=== PATIENT | male | born 1940 | race Caucasian/White ===

== ENCOUNTER 2016-08-08 13:05 | Inpatient (IN) ==
--- NOTE | 2016-08-08 15:21 | Emergency Department Note ---
Arrival - Arrival Chief Complaint: Neuro Stated Complaint: left arm mobility ED Nursing Triage Note: Pt c/o left arm numbness/weakness since 0800 that has improved. Pt has been seen at [facility] this am and D/C home dx with TIA. 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 He had an episode of nausea and vomiting just prior to this and says his arm just went numb and totally flaccid. He was seen later at [facility]. Apparently the workup was negative, although we do not have those records at this point. He was diagnosed with TIA. Admission was recommended but ne refused. They did later contacted his cardiac/vascular sonographer Dr. Sr who recommended that he come here for admission. At this point he states that his arm feels back to normal except for some slight weakness. He denies any speech difficulty, facial drooping, confusion or any other weakness or numbness outside of his left arm. No chest pain or dyspnea. He does have a history of "mini strokes" in the past. He has also had some dizziness upon standing for the last [address] Mcdonald for this yesterday. His carvedilol was decreased, however, he has not filled the new prescription or changed his dose as of yet. Allergies/Adverse Reactions: Allergies Allergy/AdvReac Type Severity Reaction Status Date / Time No Known Allergies Allergy Verified 08/08/16 13:20 Home Medications: Home Medications Medication Instructions Recorded Confirmed Type ARIPiprazole [Aripiprazole] 5 mg PO QPM 08/08/16 08/08/16 History Aspirin [Ecotrin] 81 mg PO DAILY 08/08/16 08/08/16 History Atorvastatin [Lipitor] 40 mg PO BEDTIME 08/08/16 08/08/16 History Carvedilol [Coreg] 3.125 mg PO BID 08/08/16 08/08/16 History Citalopram [CeleXA] 20 mg PO DAILY 08/08/16 08/08/16 History Furosemide Tab [Lasix Tab] 40 mg PO DAILY 08/08/16 08/08/16 History Glimepiride 2 mg PO DAILY 08/08/16 08/08/16 History Valsartan 160 mg PO DAILY 08/08/16 08/08/16 History lamoTRIgine [Lamotrigine Tab] 100 mg PO DAILY 08/08/16 08/08/16 History metFORMIN [Glucophage] 1,000 mg PO BID 08/08/16 08/08/16 History Review of System - Review of System 12 point system: reviewed and no additional remarkable complaints except as stated - Review of System Constitutional: Absent: fever Eyes: Absent: vision change Head/Ears/Nose/Throat: Absent: nasal drainage Respiratory: Absent: cough Cardiovascular: Absent: chest pain, palpitations Gastrointestinal: Present: nausea, vomiting Musculoskeletal: Absent: arm pain Neurological: Present: weakness, numbness. Absent: headache, confusion, abnormal gait Medical,Surgical,& Family Hx - Medical History Cardio: History of: CAD, Hypertension Psychological: History of: Bipolar Disorder Neurology: History of: TIA Endocrine: History of: Diabetes Mellitus (NIDDM) - Surgical History Cardiac Surgeries: Sugical HX of: Cardiac Surgery (CABG) - Social History Smoking Status: Former smoker Exam Physical Examination: GENERAL: Alert. No acute distress. HEENT: Normocephalic and atraumatic. There is no temporal artery tenderness or pain on percussion of sinuses. No TMJ tenderness or click. PERRL, EOM intact, no angle closure, discs sharp bilaterally. There is no nasal discharge. No pharyngeal erythema or exudate. NECK: Normal inspection. Supple. No lymphadenopathy or meningismus. LUNGS: No respiratory distress. Clear to auscultation bilaterally, no wheezes, rales or rhonchi. HEART: Regular rate and rhythm. SKIN: Color normal. Warm and dry. EXTREMITIES: Nontender. Normal range of motion. NEUROLOGICAL/PSYCHIATRIC: Alert and oriented -4. Normal speech. Normal mood and affect. Cranial nerves II through X are intact. Sensory and motor exams are normal. Reflexes are normal. There is no pronator drift. Finger to nose is normal bilaterally. Vital Signs: Vital Signs Temperature 97.8 F 08/08/16 13:19 Pulse Rate 61 08/08/16 15:47 Respiratory Rate 18 08/08/16 15:47 Blood Pressure 139/71 08/08/16 15:47 O2 Sat by Pulse Oximetry 95 08/08/16 15:47 Course - Reevaluation(s) Reevaluation #1: It sounds likely that the patient has had a CVA versus TIA, however, we have no records from his visit to [place]. We are sending for those records at this point. Time: 15:21 Reevaluation #2: Records received from [place]. I do not have the actual CT scan but the report reads normal senescent brain. The rest of his workup shows no significant abnormality. I suspect he has had a TIA versus CVA. He states that he still feels slightly weak in the left upper extremity, however, I can detect no weakness on physical exam. I have discussed the patient with the hospitalist service who will see him and admit. Time: 16:20 Results - Labs Lab Results: I have reviewed the patients labs Labs: See lab work done at [place]. Significant findings as follows: Glucose 174 BUN 31 Creatinine 1.6 Troponin less than 0.017 Hemoglobin 14.4 Hematocrit 43.6 White blood cell count 8.4 Platelets 245 BNP 187 INR 0.93 - Impressions EKG done at [place] shows a normal sinus rhythm at 65 with a first-degree AV block and left anterior fascicular block. Chest x-ray report from [place] reads no acute heart or lung disease. Previous trans-sternal surgery. Brain CT report from [place] reads normal senescent brain Disposition Clinical Impression: Transient cerebral ischemia Case discussed with: patient, patient's family Disposition: Still a Patient Condition: Stable Time of Disposition: 16:32
--- NOTE | 2016-08-08 16:58 | CT Report ---
Referring physician: Cristian Marroquin Exam: CT brain without contrast Date: 08/08/2016 Comparison: None Reason: TIA Technique: Axial images of the head were obtained without the use of contrast. Total DLP was 1164.60 mGy*cm. Findings: No hydrocephalus or midline shift is present. There is no evidence of recent intracranial hemorrhage, extracerebral collection, or abnormal mass effect. Diffuse atrophy with cerebral hypodensities. This includes an ill-defined hypodensity in the left rashad. The osseous structures appear intact. The mastoid air cells are clear. Minimal mucosal thickening/fluid in the paranasal sinuses. Impression: Cerebral atrophy and microvascular disease. Possible acute ischemic infarction the left rashad. MRI may be helpful for further evaluation. Minimal sinusitis. The CT exam was performed using one or more of the following dose reduction techniques: Automated exposure control and adjustment of the mA and/or kV according to patient size. PROCEDURE INTERPRETED AT [facility] DEPARTMENT OF RADIOLOGY Final Report Signed by: Dr. Columba Alfonso
--- NOTE | 2016-08-08 17:55 | Hospitalist History & Physical ---
<Ana Harden - Last Filed: 08/08/16 17:48> Assessment and Plan - Time spent with patient Time spent with patient: Greater than 30 minutes (1) Transient cerebral ischemia Status: Acute Assessment and plan: at [address] patient presented to [facility] and after evaluation; was informed that he had an TIA and would need to be admitted for further evaulation. Patient refused and contacted Dr Sr at which time was told to go to the ER for further evaluation. Patient was seen in non-urgent in no acute distress. He states his weakness in his left arm has resolved and the feeling has returned to normal. Normal speech and answers questions appropriately with very little input form his in the room. We do not have any records at this time from [facility] however, CT done upon evaluation shows: Cerebral atrophy and microvascular disease. Possible acute ischemic infarction in left rashad. Plan is to admit, labs, bilateral carotid dopplers, Echo, and MRi. Current Visit: Yes History of Present Illness Chief complaint: left arm weakness, nausea and vomiting History of present illness: Mr. Donis is a well nourished 76 year old white male very pleasant and compliant. Presented to the non-urgent with left sided weakness and nausea and vomiting that started this a.m around 8 when he was going fishing but got down the road a litlle bit started feeling nauseated and vomiting 2 or 3 times, at that time his left arm went completely numb and was unable to lift it. He went to [facility] and was evaluated. He was diagnosed with TIA and patient refused admission for further evaluation; jesusnet wanted to discuss with Dr Sr before agreeing to be admitted. He later called Dr Sr and was then instructed to go to the ER for further evaluation. He denies any facial drooping, any other numbness beside the left arm or speech abnomalities during the event. Denies chest pain, SOB or vision changes. Patient does have a history of "mini strokes" in the past with the last one occurring over 14 years ago, as well as hypertension sleep apnea (uses CPAP), Diabetes, and bipolar disorder. He quit smoking 14 years ago; does not drink alcohol. Family history Mom: CA and HTN Dad: Diabetes Home Medications Medication Instructions Recorded Confirmed Type ARIPiprazole [Aripiprazole] 5 mg PO QPM 08/08/16 08/08/16 History Aspirin [Ecotrin] 81 mg PO DAILY 08/08/16 08/08/16 History Atorvastatin [Lipitor] 40 mg PO BEDTIME 08/08/16 08/08/16 History Carvedilol [Coreg] 3.125 mg PO BID 08/08/16 08/08/16 History Citalopram [CeleXA] 20 mg PO DAILY 08/08/16 08/08/16 History Furosemide Tab [Lasix Tab] 40 mg PO DAILY 08/08/16 08/08/16 History Glimepiride 2 mg PO DAILY 08/08/16 08/08/16 History Valsartan 160 mg PO DAILY 08/08/16 08/08/16 History lamoTRIgine [Lamotrigine Tab] 100 mg PO DAILY 08/08/16 08/08/16 History metFORMIN [Glucophage] 1,000 mg PO BID 08/08/16 08/08/16 History Allergies Allergy/AdvReac Type Severity Reaction Status Date / Time No Known Allergies Allergy Verified 08/08/16 13:20 Medical,Surgical,& Family Hx - Medical History Cardio: History of: CAD (CaBG 14 years ago), Hypertension Psychological: History of: Bipolar Disorder Neurology: History of: TIA Endocrine: History of: Diabetes Mellitus (NIDDM) Respiratory: History of: Obstructive Sleep Apnea (uses his CPAP as ordered) Renal: No history of: Renal Problems - Surgical History Cardiac Surgeries: Sugical HX of: Cardiac Surgery (CABG) - Social History Smoking Status: Former smoker Review of systems: ROS systems competed and pertinent positives and negatives are presented in the HPI. Exam - Constitutional Vitals: Period Temp Pulse Resp BP Sys/Gonzalez Pulse Ox Last 24 Hr 97.8 F 61-67 16-18 130-139/71-79 95-95 General appearance: no acute distress, over weight Exam: Alert and no acute distress. - Head Head exam: Present: normal inspection - Eye Eye exam: Present: EOMI Pupils: Present: TYLER - Neck Neck exam: Present: normal inspection - Respiratory Respiratory exam: Present: clear to auscultation bilaterally - Cardiovascular Cardiovascular exam: Present: regular rate and rhythm, other (Family history: Mom HtN and CA; Diad Diabetes) - GI/Abdominal GI/Abdominal exam: Present: normal bowel sounds. Absent: guarding, tenderness, rebound - Extremities Exam Extremities exam: Present: normal inspection. Absent: edema - Neurological Exam Neurological exam: Present: alert, oriented X3 - Psychiatric Psychiatric exam: Present: normal affect - Skin Skin exam: Present: normal color, warm, dry. Absent: rash Quality Measures - Stroke Onset of Symptoms Date: 08/08/16 Onset of Symptoms Time: 08:00 Symptom Onset Unknown: No <Cristian Kay - Last Filed: 08/08/16 18:56> History of Present Illness History of present illness: Patient was seen and examined by me personally. Documentation by Ana Harden NP has been reviewed. Mr. Donis is a 76 year old white male states that while fishing approximately 8 AM he noted some nausea and vomiting as well as complete loss of the of his left upper extremity. He was seen at [facility] where he was evaluated and diagnosed with a TIA. He refused admission and call Dr. Sr's office and was referred to the ER here. He states during the day that his left upper extremity strength has essentially returned to normal and he denies any paresthesias. He denies any current chest pain, shortness breath, palpitations, abdominal pain, melena, hematochezia, hematemesis, dysuria, hematuria, seizure, syncope. Past medical history is significant for TIAs, hypertension, sleep apnea, diabetes mellitus, bipolar disorder. He is a reformed tobacco abuser. Family history is significant for cancer, hypertension, diabetes mellitus. On physical exam is currently afebrile vital signs are stable in general pleasant male no acute distress she is awake alert oriented HEENT normocephalic atraumatic pupils equal round reactive oropharynx is clear. neck supple without adenopathy no JVD or thyromegaly no bruits. cardiovascular regular rate and rhythm no murmur. lungs clear without rales or wheeze. abdomen soft nontender extremities or clubbing cyanosis or edema pulses are intact. Neurologic exam he is awake alert and oriented, cranial nerves II through XII grossly intact, gag reflex intact, no focal motor or sensory deficits, strength 5/5 in all major muscle groups. Lab and radiologic data been reviewed Impression: 1. Acute ischemic CVA 2. Chronic essential hypertension 3. Diabetes mellitus type 2 4. Hyperlipidemia 5. Obstructive sleep apnea Plan: Patient will be admitted to a cardiac monitored bed. Will place on full dose aspirin. Neuro checks every 4. Will obtain MRI of the brain, carotid Dopplers, echocardiogram in the a.m. Neurology will be consulted. Place on Accu-Cheks with sliding scale and continue moderate blood pressure control as well as his statin therapy. He will receive Lovenox subcu for DVT prophylaxis. Further workup performed based on patient, response results pending database. Exam - Constitutional Vitals: Period Temp Pulse Resp BP Sys/Gonzalez Pulse Ox Last 24 Hr 97.8 F 61-67 16-18 130-139/71-79 95-95
[2016-08-08] MEDS ORDERED: diphenhydrAMINE CAP 25 MG CAPSULE PO PRN (18:10)
[2016-08-08] MEDS ORDERED: ACETAMINOPHEN 325 MG TABLET PO PRN (18:10)
[2016-08-08] MEDS ORDERED: ONDANSETRON 4 MG/2 ML VIAL IV PRN (18:10)
[2016-08-08] MEDS ORDERED: PROMETHAZINE 25 MG/1 ML VIAL IM PRN (18:10)
[2016-08-08] MEDS ORDERED: DOCUSATE SODIUM 100 MG CAPSULE PO PRN (18:10)
[2016-08-08] MEDS ORDERED: guaiFENesin/DM ER 600-30 MG TABLET PO PRN (18:10)
[2016-08-08] MEDS ORDERED: DEXTROSE 50% 25 GM/50 ML VIAL IV PRN (18:39)
[2016-08-08] MEDS ORDERED: GLUCAGON 1 MG VIAL IM PRN (18:39)
--- NOTE | 2016-08-08 18:40 | XRay Report ---
Portable chest Date: 08/08/2016 Clinical history: Shortness of breath Comparison: 09/17/2012 Technique: Portable AP sitting chest Findings: The heart is smaller in size with prior median sternotomy. Chronic scarring. Unremarkable mediastinum with degenerative changes. Impression: Status post median sternotomy with chronic scarring. No acute cardiopulmonary pathology identified. PROCEDURE INTERPRETED AT [facility] DEPARTMENT OF RADIOLOGY Final Report Signed by: Dr. Columba Alfonso
--- NOTE | 2016-08-08 20:36 | Ultrasound Report ---
Exam: Carotid ultrasound Date: 08/08/2016 Comparison: 12/07/2006 Technique: Duplex scans of the carotid and vertebral arteries using B-mode/Gavin scale imaging and Doppler spectral analysis and color flow. Reason: TIA, left arm paralysis Findings: The right ICA measures 5.7 mm in diameter and the left ICA measures 4.4 mm in diameter. Color-flow documented in the visualized arteries. The peak systolic velocities are as follows: Right CCA: 54.5 cm/s Right ICA: 102.6 cm/s Right ECA: 455.4 cm/s Left CCA: 81.9 cm/s Left ICA: 105.2 cm/s Left ECA: 73.0 cm/s The peak systolic ICA/CCA velocity ratios are as follows: 1.9 on the right and 1.3 on the left. Antegrade flow is present in both vertebral arteries. Impression:[Less than 50% stenosis in both internal carotid arteries with heterogeneous plaque formation. Antegrade flow in both vertebral arteries.] The Society of Radiologists in Ultrasound consensus conference criteria was used. The Ultrasound images were captured and stored. PROCEDURE INTERPRETED AT [facility] DEPARTMENT OF RADIOLOGY Final Report Signed by: Dr. Columba Alfonso
[2016-08-08] MEDS ORDERED: ARIPiprazole 5 MG TABLET PO SCH (21:00)
[2016-08-08] MEDS ORDERED: ATORVASTATIN 40 MG TABLET PO SCH (21:00)
[2016-08-08] MEDS: CARVEDILOL 3.125 MG TABLET PO SCH (21:50)
[2016-08-08] MEDS: SODIUM CHLORIDE 0.9% 1,000 ML IV SCH (21:51)
[2016-08-08] MEDS: metFORMIN 500 MG TABLET PO SCH (21:51)
[2016-08-08] MEDS: INSULIN LISPRO 100 UNIT/ML SUBCUT SCH (22:23)
[2016-08-09 05:49] LABS: Basophils % 0.6 % (0.0-0.8); Eosinophils # 0.2 10*3/uL (0.0-0.87); Eosinophils % 3.5 % (0.00-10.9); Hematocrit 38.3 VOL% (42.0-52.0); Immature Granulocytes % 0.3 %; Immature Granulocytes Absolute 0.02 #; Lymphocytes # 2.3 10*3/uL (1.4-4.0); Lymphocytes % 37.1 % (21.2-54.2); Mean Corpuscular HGB Conc 33.9 GM/DL (32-36); Mean Corpuscular Hemoglobin 31 PG (27-34); Mean Corpuscular Volume 92.5 FL (87-102); Mean Platelet Volume 10.7 FL (9.6-12.0); Monocytes # 0.7 10*3/uL (0.11-0.8); Monocytes % 10.6 % (1.7-12.7); Neutrophils % 47.9 % (38.7-73.9); Platelet Count 180 T/CUMM (130-400); Red Blood Count 4.14 MC/CUMM (3.8-5.5); Red Cell Distribution Width 12.9 % (9.3-17.3); White Blood Count 6.3 T/CUMM (4-12)
[2016-08-09] MEDS: SODIUM CHLORIDE 0.9% 1,000 ML IV SCH (05:59)
[2016-08-09 06:31] LABS: Albumin 3.1 G/DL (3.4-5.0); Bilirubin,Total 0.4 MG/DL (0.2-1.0); Calcium 8.8 MG/DL (8.5-10.1); Magnesium 2.3 MG/DL (1.8-2.4); Potassium 4.1 MMOL/L (3.5-5.1); Total Protein 6.5 G/DL (6.4-8.3)
[2016-08-09 06:37] LABS: Risk Ratio 3.16; VLDL CHOLESTEROL 28.6 MG/DL
[2016-08-09] MEDS ORDERED: VALSARTAN 160 MG TABLET PO SCH (09:00)
[2016-08-09] MEDS ORDERED: FUROSEMIDE 40 MG TABLET PO SCH (09:00)
[2016-08-09] MEDS ORDERED: GLIMEPIRIDE 2 MG TABLET PO SCH (09:00)
[2016-08-09] MEDS ORDERED: ASPIRIN 325 MG TABLET PO SCH (09:00)
[2016-08-09] MEDS ORDERED: PANTOPRAZOLE 40 MG TABLET PO SCH (09:00)
[2016-08-09] MEDS ORDERED: CITALOPRAM 20 MG TABLET PO SCH (09:00)
[2016-08-09] MEDS ORDERED: lamoTRIgine 100 MG TABLET PO SCH (09:00)
[2016-08-09] MEDS: INSULIN LISPRO 100 UNIT/ML SUBCUT SCH ×2 (09:32→12:32)
[2016-08-09] MEDS: CARVEDILOL 3.125 MG TABLET PO SCH (09:39)
[2016-08-09] MEDS: metFORMIN 500 MG TABLET PO SCH (09:39)
--- NOTE | 2016-08-09 10:34 | Magnetic Resonance Report ---
MR head/brain wo con Indication: TIA Comparison: CT brain dated August 08, 2016 Technique: Multiplanar magnetic resonance imaging was performed of the brain without the use of intravenous contrast. Findings: Mild mucosal thickening of the paranasal sinuses. Moderate periventricular and subcortical T2 hyperintensity noted which is nonspecific but consistent with chronic microvascular ischemic change. Moderate global volume loss present. The midline structures are nondisplaced. There is no evidence of hydrocephalus. The gibson-white matter differentiation is maintained. There is no evidence of acute intracranial hemorrhage or ischemia. The included orbits and their contents appear within normal limits. T2 major vascular flow voids are maintained. IMPRESSION: No acute intracranial abnormal demonstrated. Probable chronic microvascular ischemic change and volume loss. PROCEDURE INTERPRETED AT [facility] DEPARTMENT OF RADIOLOGY Final Report Signed by: Dr Esau Fall
[2016-08-09 12:45] VITALS: BP 148/75
--- NOTE | 2016-08-09 14:11 | Discharge Summary ---
Hospital Course - Hospital Course Hospital Course: Discharge diagnosis: 1. Possible transient ischemic attack 2. Type II DM 3. Hypertension The patient was referred from an outside hospital for evaluation of TIA symptoms. Initial head CT showed a possible left pontine lesion. Carotid ultrasound did not reveal any hemodynamically significant stenosis. An MRI of the brain did not show any acute infarction. The patient's symptoms all resolved. He is now being discharged home. Medication reconciliation has been performed. ADA diet. Activity as tolerated. This note was completed using [employer] voice recognition software. There may be gas station clerk errors as a result. Discharge Plan - Discharge Data Disposition: Disch To Home/Self Care Discharge Diet: advance to your usual diet Activity: resume usual activities as tolerated Hygiene: no restrictions Weight Bearing at Discharge: full weight bearing Driving: no restrictions - Discharge Medications Continue metFORMIN [Glucophage] 1,000 mg PO BID Glimepiride 2 mg PO DAILY Furosemide Tab [Lasix Tab] 40 mg PO DAILY Atorvastatin [Lipitor] 40 mg PO BEDTIME Citalopram [CeleXA] 20 mg PO DAILY Aspirin [Ecotrin] 81 mg PO DAILY Valsartan 160 mg PO DAILY lamoTRIgine [Lamotrigine Tab] 100 mg PO DAILY Carvedilol [Coreg] 3.125 mg PO BID ARIPiprazole [Aripiprazole] 5 mg PO BEDTIME - Follow Up or Referral - Forms/Instructions Exam - Constitutional Vitals: Period Temp Pulse Resp BP Sys/Gonzalez Pulse Ox Last 24 Hr 96.3 F-97.6 F 53-61 18-20 118-148/69-84 93-95 Vital signs are noted above. He is up and about in the room, and has no neurologic deficits. Discharge Results Labs on day of discharge: Labs from last 24 hours 08/09/16 08/09/16 08/09/16 07:15 05:24 05:24 WBC RBC Hgb Hct MCV MCH MCHC RDW Plt Count MPV Neut % (Auto) Lymph % (Auto) [place] % (Auto) Eos % (Auto) Baso % (Auto) Neut # (Auto) Lymph # (Auto) [place] # (Auto) Eos # (Auto) Baso # (Auto) Immature Gran % Nucleated RBC % Immature Gran # Nucleated RBCs # Sodium Potassium Chloride Carbon Dioxide Anion Gap BUN Creatinine GFR Calculation BUN/Creatinine Ratio Glucose POC Glucose 130 H Hemoglobin A1c 7.0 H Calculated Osmolality Calcium Magnesium Total Bilirubin AST ALT Alkaline Phosphatase Total Protein Albumin Globulin Albumin/Globulin Ratio Triglycerides 143 Cholesterol 101 LDL Cholesterol 57.0 VLDL Cholesterol 28.6 HDL Cholesterol 32 L Heart Disease Risk Ratio 3.16 08/09/16 08/09/16 08/08/16 05:24 05:24 21:49 WBC 6.3 RBC 4.14 Hgb 13.0 L Hct 38.3 L MCV 92.5 MCH 31 MCHC 33.9 RDW 12.9 Plt Count 180 MPV 10.7 Neut % (Auto) 47.9 Lymph % (Auto) 37.1 [place] % (Auto) 10.6 Eos % (Auto) 3.5 Baso % (Auto) 0.6 Neut # (Auto) 3.0 Lymph # (Auto) 2.3 [place] # (Auto) 0.7 Eos # (Auto) 0.2 Baso # (Auto) 0.0 Immature Gran % 0.3 Nucleated RBC % 0.0 Immature Gran # 0.02 Nucleated RBCs # 0.00 Sodium 143 Potassium 4.1 Chloride 107 Carbon Dioxide 27 Anion Gap 13.1 BUN 25 H Creatinine 1.20 GFR Calculation 76 BUN/Creatinine Ratio 20.00 Glucose 133 H POC Glucose 200 H Hemoglobin A1c Calculated Osmolality 290.0 Calcium 8.8 Magnesium 2.3 Total Bilirubin 0.40 AST 50 H ALT 98 H Alkaline Phosphatase 98 Total Protein 6.5 Albumin 3.1 L Globulin 3.4 Albumin/Globulin Ratio 0.9 L Triglycerides Cholesterol LDL Cholesterol VLDL Cholesterol HDL Cholesterol Heart Disease Risk Ratio DS: Provider Date of admission: 08/08/16 17:42 Primary care physician: . No PCP Attending physician on admission: Gera Cason MD Consults: 08/08/16 19:07 Consult to Physician [CONS] Routine Comment: Consulting Provider: Golden Romano Person Notified: herrera Date Notified: 08/09/16 Time Notified: 08:48 Discharging clinician: Dillon Lucas MD Expected date of discharge: 08/09/16
--- NOTE | 2016-08-09 15:49 | ECHO Report ---
John Donis Exam Date: 08/09/2016 12:07 Referring Physician: Technologist: Jordana Goodrich RDCS Age: 76 Ht (in): 72 Wt (lb): 226 Gender: M Exam Location: [facility] Echo Indications: Essential (primary) hypertension, Diabetes, CAD, TIA, Nausea and vomiting BP: 129 / 80 HR: 55 Rhythm: Sinus Technical Quality: Good IMPRESSIONS Distal anteroapical hypokinesis. EF 45 %. Grade I/IV diastolic dysfunction (abnormal relaxation filling pattern), normal to mildly elevated filling pressures. Mildly increased right ventricular size. The right atrium is mildly enlarged. Moderately increased left atrial size. Morphologically normal mitral valve. Mild mitral valve regurgitation. Aortic valve sclerosis. No aortic valve regurgitation. [id number] tricuspid valve regurgitation. PAP 55-60 mmHG. Trace to mild pulmonary valve regurgitation. Normal pericardium without effusion. Normal ascending aorta dimension. MEASUREMENTS (Male / Female) Normal Values 2D ECHO LV Diastolic Diameter PLAX 5.0 cm 4.2 - 5.9 / 3.9 - 5.3 cm LV Systolic Diameter PLAX 3.5 cm LV Fractional Shortening PLAX 28.6 % IVS Diastolic Thickness 1.3 cm 0.6 - 1.0 / 0.6 - 0.9 cm LVPW Diastolic Thickness 1.3 cm 0.6 - 1.0 / 0.6 - 0.9 cm RV Internal Dim ED PLAX 2.7 cm Aortic Root Diameter 3.1 cm LA Systolic Diameter LX 5.0 cm 3.0 - 4.0 / 2.7 - 3.8 cm DOPPLER TR Peak Velocity 341.0 cm/s TR Peak Gradient 46.5 mmHg FINDINGS Left Ventricle Distal anteroapical hypokinesis.EF 45 %. Grade I/IV diastolic dysfunction (abnormal relaxation filling pattern), normal to mildly elevated filling pressures. Right Ventricle Mildly increased right ventricular size. Right Atrium The right atrium is mildly enlarged. Left Atrium Moderately increased left atrial size. Mitral Valve Morphologically normal mitral valve. Mild mitral valve regurgitation. Aortic Valve Aortic valve sclerosis. No aortic valve regurgitation. Tricuspid Valve Morphologically normal tricuspid valve. Feeeombq-hj-aclbct tricuspid valve regurgitation. PAP 55-60 mmHG. Pulmonic Valve Morphologically normal pulmonic valve. Trace to mild pulmonary valve regurgitation. Pericardium Normal pericardium without effusion. Aorta Normal ascending aorta dimension. Damien Plavac (Electronically Signed) Final Date: 09 August 2016 15:48
== END 2016-08-09 15:00 | disposition home or self-care (01) | DRG 69 ==
LOC: N.ED 13:05 → SUATTDRO 17:42 → N.EDINP 17:42 → N.2E 18:42
PROVIDERS: ADMIT Family Medicine; ATTEND Internal Medicine Geriatric Medicine

== ENCOUNTER 2019-09-12 20:05 | Observation (INO) ==
[2019-09-12] MEDS ORDERED: SODIUM CHLORIDE 0.9% 500 ML IV STA (20:48)
[2019-09-12 20:52] LABS: Basophils # 0.1 10*3/uL (0.0-0.2); Basophils % 0.6 % (0.0-0.8); Eosinophils # 0.2 10*3/uL (0.0-0.87); Eosinophils % 1.7 % (0.00-10.9); Hematocrit 40.3 VOL% (42.0-52.0); Hemoglobin 13.5 GM/DL (14.0-18.0); Immature Granulocytes % 0.6 %; Immature Granulocytes Absolute 0.06 #; Lymphocytes # 3.2 10*3/uL (1.4-4.0); Lymphocytes % 32.4 % (21.2-54.2); Mean Corpuscular HGB Conc 33.5 GM/DL (32-36); Mean Corpuscular Volume 94.4 FL (87-102); Monocytes % 6.9 % (1.7-12.7); Neutrophils % 57.8 % (38.7-73.9); Platelet Count 238 T/CUMM (130-400); Red Blood Count 4.27 MC/CUMM (3.8-5.5); White Blood Count 9.9 T/CUMM (4-12)
[2019-09-12 21:08] LABS: Albumin 3.4 G/DL (3.4-5.0); Bilirubin,Total 0.5 MG/DL (0.2-1.0); Calcium 9.1 MG/DL (8.5-10.1); Osmolality,Calculated 280.7 MOS/KG (273-304); Total Protein 7.5 G/DL (6.4-8.3)
[2019-09-12 22:12] LABS: Apearance,Urine CLEAR (Clear); Bacteria,Urine Occasional /HPF (Few); Bilirubin,Urine Negative (Negative); Blood, Urine Negative (Negative); Calcium Oxalate Crystals,Urine Occasional /HPF (Few); Glucose,Urine (UA) Negative (Negative); Hyaline Casts,Urine 19 /LPF (0-3); Ketones,Urine Negative (Negative); Mucus,Urine Occasional /LPF (Occasional); Nitrite,Urine Negative (Negative); Protein,Urine Negative; RBC,Urine 1 /HPF (0-4); Squamous Epithelial Cell,Urine Occasional /HPF (0-10); Urine Color Yellow (Yellow); Urine Specific Gravity 1.012 (1.001-1.035); Urine Urobilinogen < 2.0 EU/DL (0.2-1.0); WBC,Urine 5 /HPF (0-6)
[2019-09-12] MEDS ORDERED: ACETAMINOPHEN 325 MG TABLET PO PRN (23:12)
[2019-09-12] MEDS ORDERED: GLUCAGON 1 MG VIAL IM PRN (23:12)
[2019-09-12] MEDS ORDERED: ONDANSETRON 4 MG/2 ML VIAL IV PRN (23:12)
[2019-09-12] MEDS ORDERED: DEXTROSE 50% 25 GM/50 ML VIAL IV PRN (23:12)
[2019-09-13] MEDS: ENOXAPARIN 30 MG/0.3 ML SYRINGE SUBCUT SCH ×2 (02:15→22:35)
[2019-09-13] MEDS: INSULIN REGULAR 100 UNIT/ML SUBCUT SCH ×4 (07:35→21:44)
[2019-09-13 08:26] LABS: Basophils # 0.1 10*3/uL (0.0-0.2); Basophils % 0.8 % (0.0-0.8); Eosinophils # 0.2 10*3/uL (0.0-0.87); Eosinophils % 2.3 % (0.00-10.9); Hematocrit 41.2 VOL% (42.0-52.0); Hemoglobin 13.8 GM/DL (14.0-18.0); Immature Granulocytes % 0.6 %; Immature Granulocytes Absolute 0.04 #; Lymphocytes % 46.1 % (21.2-54.2); Mean Corpuscular HGB Conc 33.5 GM/DL (32-36); Mean Corpuscular Volume 94.5 FL (87-102); Mean Platelet Volume 10.7 FL (9.6-12.0); Monocytes % 6.9 % (1.7-12.7); Neutrophils % 43.3 % (38.7-73.9); Platelet Count 192 T/CUMM (130-400); Red Blood Count 4.36 MC/CUMM (3.8-5.5); Red Cell Distribution Width 12.9 % (9.3-17.3); White Blood Count 6.5 T/CUMM (4-12)
[2019-09-13 08:43] LABS: Albumin 3.2 G/DL (3.4-5.0); Bilirubin,Total 0.5 MG/DL (0.2-1.0); Calcium 8.9 MG/DL (8.5-10.1); Osmolality,Calculated 286.2 MOS/KG (273-304); Total Protein 6.9 G/DL (6.4-8.3)
[2019-09-13] MEDS ORDERED: NITROGLYCERIN SL 0.4 MG TABLET SL PRN (09:50)
[2019-09-13] MEDS: PANTOPRAZOLE 40 MG TABLET PO SCH (10:00)
[2019-09-13] MEDS ORDERED: CITALOPRAM 20 MG TABLET PO SCH (21:00)
[2019-09-13] MEDS: RANOLAZINE 500 MG TABLET PO SCH (21:42)
[2019-09-14] MEDS ORDERED: NEBIVOLOL 5 MG TABLET PO SCH (09:00)
[2019-09-14] MEDS ORDERED: ASPIRIN EC 81 MG TABLET PO SCH (09:00)
[2019-09-14] MEDS ORDERED: CLOPIDOGREL 75 MG TABLET PO SCH (09:00)
[2019-09-14] MEDS: PANTOPRAZOLE 40 MG TABLET PO SCH (09:33)
[2019-09-14] MEDS: RANOLAZINE 500 MG TABLET PO SCH (09:34)
[2019-09-14] MEDS: INSULIN REGULAR 100 UNIT/ML SUBCUT SCH (09:34)
[2019-09-14 11:33] VITALS: BP 152/74
== END 2019-09-14 12:07 | disposition home or self-care (01) ==
LOC: EDBD → EDUNIT# → N.ED 20:05 → N.EDINP 20:05 → SUATTDRO 23:12 → N.EDINP 09-13 12:39 → N.TELEN 09-13 14:22
PROVIDERS: ADMIT Family Medicine; ATTEND Internal Medicine

== ENCOUNTER 2020-07-20 14:09 | Observation (INO) ==
[2020-07-20] MEDS ORDERED: SODIUM CHLORIDE 0.9% 1,000 ML IV STA (14:42)
[2020-07-20 14:49] LABS: Basophils # 0.1 10*3/uL (0.0-0.2); Basophils % 0.6 % (0.0-0.8); Eosinophils # 0.1 10*3/uL (0.0-0.87); Eosinophils % 1.6 % (0.00-10.9); Hematocrit 38.4 VOL% (42.0-52.0); Hemoglobin 12.6 GM/DL (14.0-18.0); Immature Granulocytes % 0.5 %; Immature Granulocytes Absolute 0.04 #; Lymphocytes # 1.6 10*3/uL (1.4-4.0); Lymphocytes % 20.1 % (21.2-54.2); Mean Corpuscular HGB Conc 32.8 GM/DL (32-36); Mean Corpuscular Volume 99.2 FL (87-102); Mean Platelet Volume 10.6 FL (9.6-12.0); Monocytes % 6.2 % (1.7-12.7); Platelet Count 203 T/CUMM (130-400); Red Blood Count 3.87 MC/CUMM (3.8-5.5); Red Cell Distribution Width 12.7 % (9.3-17.3); White Blood Count 7.7 T/CUMM (4-12)
[2020-07-20 14:55] LABS: INR 1.3; PT Patient Result 13.9 SECS (10.5-12.0)
[2020-07-20 15:06] LABS: Albumin 3.2 G/DL (3.4-5.0); Bilirubin,Total 0.5 MG/DL (0.2-1.0); Calcium 8.2 MG/DL (8.5-10.1); Osmolality,Calculated 294.4 MOS/KG (273-304); Potassium 4.4 MMOL/L (3.5-5.1); Total Protein 6.7 G/DL (6.4-8.2)
[2020-07-20] MEDS ORDERED: ONDANSETRON 4 MG/2 ML VIAL IV PRN (15:33)
[2020-07-20] MEDS ORDERED: GLUCAGON 1 MG VIAL IM PRN (15:33)
[2020-07-20] MEDS ORDERED: DEXTROSE 50% 25 GM/50 ML VIAL IV PRN (15:33)
[2020-07-20] MEDS ORDERED: NITROGLYCERIN SL 0.4 MG TABLET SL PRN (16:27)
[2020-07-20] MEDS: INSULIN REGULAR 100 UNIT/ML SUBCUT SCH (18:32)
[2020-07-20] MEDS: ROSUVASTATIN 10 MG TABLET PO SCH (22:06)
[2020-07-20] MEDS: CITALOPRAM 20 MG TABLET PO SCH (22:06)
[2020-07-20] MEDS: ENOXAPARIN 30 MG/0.3 ML SYRINGE SUBCUT SCH (22:06)
[2020-07-21 05:02] LABS: Basophils % 0.7 % (0.0-0.8); Eosinophils # 0.2 10*3/uL (0.0-0.87); Eosinophils % 2.9 % (0.00-10.9); Hematocrit 38.1 VOL% (42.0-52.0); Hemoglobin 12.4 GM/DL (14.0-18.0); Immature Granulocytes % 0.5 %; Immature Granulocytes Absolute 0.03 #; Lymphocytes # 2.1 10*3/uL (1.4-4.0); Lymphocytes % 36.3 % (21.2-54.2); Mean Corpuscular HGB Conc 32.5 GM/DL (32-36); Mean Corpuscular Volume 99.5 FL (87-102); Mean Platelet Volume 10.4 FL (9.6-12.0); Monocytes % 8.9 % (1.7-12.7); Neutrophils % 50.7 % (38.7-73.9); Platelet Count 169 T/CUMM (130-400); Red Blood Count 3.83 MC/CUMM (3.8-5.5); Red Cell Distribution Width 12.7 % (9.3-17.3); White Blood Count 5.9 T/CUMM (4-12)
[2020-07-21 05:24] LABS: Calcium 8.5 MG/DL (8.5-10.1); Osmolality,Calculated 285.5 MOS/KG (273-304); Potassium 3.8 MMOL/L (3.5-5.1)
[2020-07-21 05:34] LABS: Risk Ratio 2.91; Thyroid Stimulating Hormone 2.12 uIU/ml (0.358-3.74); VLDL CHOLESTEROL 45.2 MG/DL
[2020-07-21] MEDS: CLOPIDOGREL 75 MG TABLET PO SCH (09:15)
[2020-07-21] MEDS: ASPIRIN EC 81 MG TABLET PO SCH (09:15)
[2020-07-21] MEDS: INSULIN REGULAR 100 UNIT/ML SUBCUT SCH ×2 (09:15→17:01)
[2020-07-21] MEDS: METOPROLOL SUCCINATE XL 50 MG TABLET PO SCH ×2 (12:35→21:00)
[2020-07-21] MEDS: ENOXAPARIN 30 MG/0.3 ML SYRINGE SUBCUT SCH (20:59)
[2020-07-21] MEDS: SACUBITRIL/VALSARTAN 49-51 MG TABLET PO SCH (21:00)
[2020-07-21] MEDS: ROSUVASTATIN 10 MG TABLET PO SCH (21:00)
[2020-07-21] MEDS: CITALOPRAM 20 MG TABLET PO SCH (21:00)
[2020-07-22 06:47] LABS: Basophils % 0.7 % (0.0-0.8); Eosinophils # 0.2 10*3/uL (0.0-0.87); Eosinophils % 3.3 % (0.00-10.9); Hematocrit 41.1 VOL% (42.0-52.0); Hemoglobin 13.3 GM/DL (14.0-18.0); Immature Granulocytes % 0.7 %; Immature Granulocytes Absolute 0.04 #; Lymphocytes # 2.1 10*3/uL (1.4-4.0); Lymphocytes % 35.6 % (21.2-54.2); Mean Corpuscular HGB Conc 32.4 GM/DL (32-36); Mean Corpuscular Volume 100.7 FL (87-102); Mean Platelet Volume 10.4 FL (9.6-12.0); Monocytes % 7.6 % (1.7-12.7); Neutrophils % 52.1 % (38.7-73.9); Platelet Count 186 T/CUMM (130-400); Red Blood Count 4.08 MC/CUMM (3.8-5.5); Red Cell Distribution Width 12.6 % (9.3-17.3); White Blood Count 5.8 T/CUMM (4-12)
[2020-07-22 07:20] LABS: Calcium 8.8 MG/DL (8.5-10.1); Osmolality,Calculated 289.1 MOS/KG (273-304); Potassium 4.2 MMOL/L (3.5-5.1)
[2020-07-22 08:00] VITALS: BP 110/51
[2020-07-22] MEDS: INSULIN REGULAR 100 UNIT/ML SUBCUT SCH (08:42)
[2020-07-22] MEDS: METOPROLOL SUCCINATE XL 50 MG TABLET PO SCH (08:43)
[2020-07-22] MEDS: SACUBITRIL/VALSARTAN 49-51 MG TABLET PO SCH (08:43)
[2020-07-22] MEDS: ASPIRIN EC 81 MG TABLET PO SCH (08:43)
[2020-07-22] MEDS: CLOPIDOGREL 75 MG TABLET PO SCH (08:44)
[2020-07-23] MEDS ORDERED: PNEUMOCOCCAL VACCINE (13 VALENT) 0.5 ML SYRINGE IM ONE (08:00)
== END 2020-07-22 12:44 | disposition home health service (06) ==
LOC: N.ED 14:09 → INTOOBSV 15:32 → N.EDINP 15:32 → SUATTDRO 16:36 → N.TELES 22:24
PROVIDERS: ADMIT Hospitalist; ATTEND Internal Medicine